=== PATIENT | female | born 1945 | race Caucasian/White ===

== ENCOUNTER 2021-03-28 13:33 | Inpatient (IN) | payer BC, SELFPAY ==
[~2021-03-28] VITALS: Ht 172.7 cm; Wt 66.2 kg
[2021-03-28 13:35] VITALS: BP_SYST 135
--- NOTE | 2021-03-28 13:40 | NUR ---
Patient to ER bed 7 to gown for evaluation. Side rails up. Report given to Laura ROYAL.
--- NOTE | 2021-03-28 13:42 | NUR ---
Pt brought by ACLS, A&Ox4, pt presents to ER with rapid heartbeat, pt has Hx of Afib, skin pink and warm, cap refill <3, VSS, respirations even and unlabored, will cont to monitor.
--- NOTE | 2021-03-28 14:22 | NUR ---
ER DR. CARDONA AT THE BEDSIDE
[2021-03-28] MEDS ORDERED: DILTIAZEM HCL 25 MG/5 ML VIAL IVP ONE ×2 (14:30→20:15)
[2021-03-28] MEDS ORDERED: MAG HYDROX/AL HYDROX/SIMETH 30 ML, DICYCLOMINE HCL 20 MG, LIDOCAINE VISCOUS 2% 15ML (PO... PO ONE ×3 (14:45)
--- NOTE | 2021-03-28 14:47 | NUR ---
PORTABLE X-RAY AT THE BEDSIDE
--- NOTE | 2021-03-28 14:54 | NUR ---
Patient transported to radiology via WC, accompanied by STAFF.
[2021-03-28] MEDS ORDERED: DILTIAZEM HCL 125 MG/25 ML VIAL IV ONE ×2 (14:58→22:47)
[2021-03-28 15:05] LABS: BASOPHILS % (AUTO) 0.1 % (0.0-2.0); HEMATOCRIT 43.4 % (36-48); HEMOGLOBIN 14.8 g/dL (12.0-16.0); LYMPHOCYTES # (AUTO) 0.6 K/uL (1.0-5.5); LYMPHOCYTES % (AUTO) 7.1 % (20.5-51.5); MEAN CORPUSCULAR HEMOGLOBIN 33 pg (27-31); MEAN CORPUSCULAR HGB CONC 34 % (32-36); MEAN CORPUSCULAR VOLUME 95 fL (79.0-98.0); MONOCYTES # (AUTO) 0.4 K/uL (0.0-1.0); NEUTROPHILS # (AUTO) 7.2 K/uL (1.8-7.7); NEUTROPHILS % (AUTO) 87.8 % (40.0-70.0); PLATELET COUNT (AUTO) 173 K/uL (130-430); RED BLOOD CELL COUNT(AUTO) 4.55 MIL/uL (4.2-6.2); RED CELL DISTRIBUTION WIDTH 15.2 % (9.0-15.0); WHITE BLOOD COUNT (AUTO) 8.2 K/uL (4.8-10.8)
[2021-03-28 15:25] LABS: INR 1.3 (0.8-1.2)
[2021-03-28 15:30] LABS: ALANINE AMINOTRANSFERASE 112 U/L (12-78); ALBUMIN 3.4 g/dL (3.4-4.8); ANION GAP 11 (5-15); ASPARTATE AMINOTRANSFERASE 95 U/L (10-37); CALCIUM 9.2 mg/dL (8.4-11.0); CHLORIDE 100 mmol/L (98-107); CREATININE 1.16 mg/dL (0.55-1.30); GLUCOSE 157 mg/dL (70-99); SODIUM SERUM 137 mmol/L (136-145); TOTAL BILIRUBIN 2.1 mg/dL (0.0-1.0); UREA NITROGEN, BLOOD 27 mg/dL (8-21)
[2021-03-28 15:36] LABS: POTASSIUM 2.5 mmol/L (3.5-5.1)
[2021-03-28 15:38] LABS: PROTHROMBIN TIME 13.1 SECS (9.5-12.5)
[2021-03-28] MEDS ORDERED: KCL 20 mEq in 100 mL (PREMIX) 100 ML IV ONE ×3 (16:00→22:00)
--- NOTE | 2021-03-28 16:01 | NUR ---
CARDIZEM DRIP TITRATED TO 15 MLS/HR PER PROTOCOL, BP 109/69, HR 125
--- NOTE | 2021-03-28 16:15 | NUR ---
Fe rosales in ED - 03/28/21 at 1656 by [email or web address] CARDIHARDIK DALEIP TITRATED TO 15 MLS/HR BP 115/54 P 135
[2021-03-28] MEDS ORDERED: IOHEXOL 350 mgI/mL, 150 ML INFUS..BTL IV ONE (16:21)
[2021-03-28] MEDS ORDERED: LOSA50TA3 PO (18:13)
[2021-03-28] MEDS ORDERED: LIP40 PO (18:13)
[2021-03-28] MEDS ORDERED: AMLO5TAB92 PO (18:13)
[2021-03-28] MEDS ORDERED: PARO-41 PO (18:13)
[2021-03-28] MEDS ORDERED: MECL-103 PO (18:13)
[2021-03-28] MEDS ORDERED: HYDR12.55 PO (18:13)
[2021-03-28] MEDS ORDERED: LORA-258 PO (18:13)
[2021-03-28] MEDS ORDERED: ASPI-1393 PO (18:13)
--- NOTE | 2021-03-28 18:13 | NUR ---
Medication reconciliation completed with information provided by MAKENZIE MAYO. Any prior medication reconciliation on file was reviewed and corrected.
[2021-03-28] MEDS ORDERED: *HEPARIN PER PHARMACY XX ONE (19:45)
--- NOTE | 2021-03-28 19:48 | NUR ---
Patient will be admitted to care of DR. GALLEGO A CASE OF NEW ONSET OF ATRIAL FIBRILLATION AND RVR. Admitted to ICU unit. Will go to room PENDING. Belongings list completed. Complete and up to date summary report printed. SBAR report to be given at bedside with opportunity for questions.
[2021-03-28] MEDS ORDERED: HEPARIN SODIUM,PORCINE 5,000 UNITS/ML VIAL IVP ONE (20:00)
[2021-03-28] MEDS ORDERED: HEPARIN SODIUM,PORCINE 3000 UNITS/0.6 ML BOLUS IVP PRN (20:00)
[2021-03-28] MEDS ORDERED: HEPARIN SODIUM,PORCINE 2000 UNITS/0.4 ML BOLUS IVP PRN (20:00)
[2021-03-28] MEDS ORDERED: HEPARIN 25,000 UNITS in 250 ML PREMIX IV PRN (20:00)
--- NOTE | 2021-03-28 20:01 | NUR ---
CALLED. INFORMED OF STATUS. WILL CALL TOMORROW MORNING FOR UPDATE
--- NOTE | 2021-03-28 20:20 | NUR ---
Pt SpO2 90% RA, placed on 2L/NC.
--- NOTE | 2021-03-28 21:35 | NUR ---
DAUGHTER, IGGY KAUFFMAN, UPDATED ON STATUS
[2021-03-28 22:54] LABS: BILIRUBIN,URINE 2+ (NEGATIVE); GLUCOSE,URINE NEGATIVE (NEGATIVE); KETONES,URINE TRACE (NEGATIVE); LEUKOCYTE ESTERASE ,URINE NEGATIVE (NEGATIVE); NITRITE, URINE NEGATIVE (NEGATIVE); PROTEIN URINE TRACE (NEGATIVE)
--- NOTE | 2021-03-28 23:00 | NUR ---
Pt moved to ER bed 2.
[2021-03-28 23:03] LABS: BLOOD, URINE TRACE (NEGATIVE); CLARITY/URINE HAZY (CLEAR); COLOR,URINE AMBER (YELLOW)
[2021-03-28] MEDS ORDERED: POTASSIUM CHLORIDE 20 MEQ in NS 250 ML IV PRN (23:15)
[2021-03-28 23:24] LABS: BACTERIA,URINE FEW /HPF (None Seen); RBC,URINE 0-3 /HPF (0-3)
[2021-03-28 23:25] LABS: MUCUS,URINE None Seen /LPF (None Seen)
[2021-03-29] VITALS (22 sets, daily range): BP systolic 82–151
--- NOTE | 2021-03-29 00:30 | NUR ---
Pt attempting to get out of bed multiple times. Pt pulled out PIV. Bleeding controlled and dressing applied. Pt re-oriented and placed back in bed.
[2021-03-29] MEDS: LORazepam 1 MG TABLET PO PRN ×2 (01:19→21:43)
[2021-03-29] MEDS ORDERED: KCL 20 mEq in 100 mL (PREMIX) 100 ML IV ONE (02:23)
--- NOTE | 2021-03-29 02:30 | NUR ---
Pt in bed, pulled out PIV again. Bleeding controlled and dressing applied.
--- NOTE | 2021-03-29 02:50 | NUR ---
Received call from Dr. Marquez- updated on patient. Orders received.
[2021-03-29] MEDS ORDERED: DIPHENHYDRAMINE INJ 50 MG/ML VIAL IV ONE (03:00)
--- NOTE | 2021-03-29 03:00 | NUR ---
Patient's code status is FULL CODE paperwork completed and placed in chart.
[2021-03-29] MEDS ORDERED: DIPHENHYDRAMINE INJ 50 MG/ML VIAL ONE (03:02)
--- NOTE | 2021-03-29 03:20 | NUR ---
Transfer to ICU 1 via ACLS protocol. Licensed nurse present. IV present no signs or symptoms of infiltration.
--- NOTE | 2021-03-29 03:35 | NUR ---
ICU ADMIT Patient is alert, awake and confused. O2 via NC @ 2L, RR even and unlabored. Skin warm/dry/intact. IV infusing, no signs of infiltration noted. Bilateral wrist restraints in place, no signs of skin issues noted. Safety precautions in place, call light within reach. Will continue to monitor.
--- NOTE | 2021-03-29 06:30 | NUR ---
Spoke to patients daughter. Update given.
--- NOTE | 2021-03-29 06:40 | NUR ---
CONSULT CARDIO. CONSULTING MD: DR. SAAVEDRA PERSON NOTIFIED: TANESHA DIALED: [phone] ORDERED BY: DR. GALLEGO
[2021-03-29 07:39] LABS: BASOPHILS % (AUTO) 0.1 % (0.0-2.0); HEMATOCRIT 43.7 % (36-48); HEMOGLOBIN 14.7 g/dL (12.0-16.0); LYMPHOCYTES # (AUTO) 1.3 K/uL (1.0-5.5); LYMPHOCYTES % (AUTO) 13.6 % (20.5-51.5); MEAN CORPUSCULAR HEMOGLOBIN 32 pg (27-31); MEAN CORPUSCULAR HGB CONC 34 % (32-36); MEAN CORPUSCULAR VOLUME 95 fL (79.0-98.0); MONOCYTES # (AUTO) 0.7 K/uL (0.0-1.0); NEUTROPHILS # (AUTO) 7.7 K/uL (1.8-7.7); NEUTROPHILS % (AUTO) 79.3 % (40.0-70.0); PLATELET COUNT (AUTO) 190 K/uL (130-430); RED BLOOD CELL COUNT(AUTO) 4.59 MIL/uL (4.2-6.2); RED CELL DISTRIBUTION WIDTH 14.9 % (9.0-15.0); WHITE BLOOD COUNT (AUTO) 9.7 K/uL (4.8-10.8)
[2021-03-29] MEDS: ASPIRIN 81 MG TABLET(ECOTRIN) PO SCH (08:51)
[2021-03-29] MEDS: PARoxetine HCL 20 MG TABLET PO SCH ×2 (08:51→21:42)
[2021-03-29] MEDS: ATORVASTATIN 20 MG TABLET PO SCH (08:51)
[2021-03-29] MEDS ORDERED: LOSARTAN POTASSIUM 50 MG TABLET (COZAAR) PO SCH (09:00)
[2021-03-29] MEDS ORDERED: AMIODARONE HCL 200 MG TABLET PO ONE (09:00)
[2021-03-29] MEDS: APIXABAN 2.5 MG TABLET PO SCH ×2 (09:17→21:43)
[2021-03-29 09:31] LABS: INR 1.6 (0.8-1.2); PROTHROMBIN TIME 16.1 SECS (9.5-12.5)
[2021-03-29 10:19] LABS: ANION GAP 18 (5-15); CALCIUM 9.2 mg/dL (8.4-11.0); CHLORIDE 99 mmol/L (98-107); CREATININE 1.42 mg/dL (0.55-1.30); GLUCOSE 184 mg/dL (70-99); POTASSIUM 3.3 mmol/L (3.5-5.1); SODIUM SERUM 134 mmol/L (136-145); UREA NITROGEN, BLOOD 30 mg/dL (8-21)
[2021-03-29 10:20] LABS: TOTAL BILIRUBIN 2.4 mg/dL (0.0-1.0)
[2021-03-29 10:21] LABS: ALANINE AMINOTRANSFERASE 171 U/L (12-78); ALBUMIN 3.3 g/dL (3.4-4.8); ASPARTATE AMINOTRANSFERASE 190 U/L (10-37); FREE T4 (FREE THYROXINE) 2.1 ng/dl (0.8-1.5); THYROID STIMULATING HORMONE 4.34 uIu/mL (0.36-3.74)
[2021-03-29 11:32] LABS: CHOLESTEROL 84 mg/dL (<200); HDL CHOLESTEROL 47 mg/dL (>55); LDL CHOLESTEROL 50 mg/dL (<100); TRIGLYCERIDES 78 mg/dL (30-150)
[2021-03-29] MEDS ORDERED: POTASSIUM CHLORIDE 20 MEQ TAB.PRT.SR PO ONE (12:45)
[2021-03-29] MEDS: AMIODARONE HCL 200 MG TABLET PO SCH ×2 (13:59→21:42)
[2021-03-29] MEDS: cefTRIAXone 1 GM in D5W 50 ML IV SCH (14:00)
--- NOTE | 2021-03-29 18:26 | NUR ---
PAGED FOR ORDERS DIALED: [phone] SPOKE TO: KAILEY
--- NOTE | 2021-03-29 19:16 | NUR ---
No urine output for the shift, unable to obtain urine specimen. Patient refuses to drink fluids. Dr. Marquez informed. Obtained order for NS 2 liters @ 100ml/hr.
--- NOTE | 2021-03-29 19:18 | NUR ---
Status remains stable. Continues on Cardizem @ 10mgs/hr. Remains in Afib @ a controlled rate. Dr. Marquez order to discontinue Cardizem if HR is between 90 and 70. Report given to Uyen, the [employer]person [employer] RN that will continue with the care of this patient. All stated protocols remain effective.
--- NOTE | 2021-03-29 19:30 | NUR ---
PM SHIFT ASSESSMENT Patient is alert, awake and confused. O2 via NC @ 2L, RR even and unlabored. Skin warm/dry/intact. IV infusing, no signs of infiltration noted. Bilateral wrist restraints in place, no signs of skin issues noted. Safety precautions in place, call light within reach. Will continue to monitor.
[2021-03-29] MEDS: NACL 0.9% 1,000 ML IV SCH (19:35)
[2021-03-29] MEDS ORDERED: DILTIAZEM HCL 125 MG/25 ML VIAL IV ONE (21:20)
[2021-03-30] VITALS (26 sets, daily range): BP systolic 61–145
[2021-03-30] MEDS ORDERED: KCL 20 mEq in 100 mL (PREMIX) 100 ML IV ONE (00:31)
--- NOTE | 2021-03-30 02:00 | NUR ---
PAGED DR. GALLEGO FOR ORDERS DIALED: [phone] SPOKE TO: KAILEY
--- NOTE | 2021-03-30 02:10 | NUR ---
Spoke to Dr. Alma MD informed that patient is feeling dizzy and nauseous. also informed of patients minimal output, orders for lamar catheter and zofran per MD order.
[2021-03-30] MEDS ORDERED: ONDANSETRON HCL 4 MG/2 ML VIAL IVP PRN (02:15)
[2021-03-30] MEDS: AMIODARONE HCL 200 MG TABLET PO SCH (05:26)
[2021-03-30] MEDS: NACL 0.9% 1,000 ML IV SCH ×2 (05:27→13:20)
[2021-03-30 06:39] LABS: BASOPHILS % (AUTO) 0.1 % (0.0-2.0); EOSINOPHILS % (AUTO) 0.1 % (0.0-4.0); HEMATOCRIT 45.9 % (36-48); HEMOGLOBIN 15.2 g/dL (12.0-16.0); LYMPHOCYTES # (AUTO) 0.7 K/uL (1.0-5.5); LYMPHOCYTES % (AUTO) 6.4 % (20.5-51.5); MEAN CORPUSCULAR HEMOGLOBIN 32 pg (27-31); MEAN CORPUSCULAR HGB CONC 33 % (32-36); MEAN CORPUSCULAR VOLUME 98 fL (79.0-98.0); MONOCYTES # (AUTO) 0.7 K/uL (0.0-1.0); NEUTROPHILS # (AUTO) 9.1 K/uL (1.8-7.7); NEUTROPHILS % (AUTO) 86.4 % (40.0-70.0); PLATELET COUNT (AUTO) 194 K/uL (130-430); RED CELL DISTRIBUTION WIDTH 15.4 % (9.0-15.0); WHITE BLOOD COUNT (AUTO) 10.5 K/uL (4.8-10.8)
[2021-03-30 07:12] LABS: ALBUMIN 3.1 g/dL (3.4-4.8); ANION GAP 22 (5-15); CHLORIDE 100 mmol/L (98-107); FREE T4 (FREE THYROXINE) 2.1 ng/dl (0.8-1.5); GLUCOSE 255 mg/dL (70-99); POTASSIUM 3.7 mmol/L (3.5-5.1); SODIUM SERUM 135 mmol/L (136-145); THYROID STIMULATING HORMONE 5.69 uIu/mL (0.36-3.74); UREA NITROGEN, BLOOD 40 mg/dL (8-21)
--- NOTE | 2021-03-30 07:30 | NUR ---
ENDORSEMENT Patient care endorsed to wojciech ROYAL.
[2021-03-30] MEDS ORDERED: CARVEDILOL 6.25 MG TABLET (COREG) PO ONE (09:00)
[2021-03-30] MEDS: PARoxetine HCL 20 MG TABLET PO SCH ×2 (09:50→22:38)
[2021-03-30] MEDS: ATORVASTATIN 20 MG TABLET PO SCH (09:50)
[2021-03-30] MEDS: ASPIRIN 81 MG TABLET(ECOTRIN) PO SCH (09:50)
[2021-03-30 10:30] LABS: ALANINE AMINOTRANSFERASE 537 U/L (12-78); ASPARTATE AMINOTRANSFERASE 614 U/L (10-37)
--- NOTE | 2021-03-30 11:22 | NUR ---
LOW URINE OUTPUT NO URINE OUTPUT THIS MORNING, BLADDER SCAN = 25mL. BUN/CREAT INCREASED. DR. JULIÁN VALDOVINOS
[2021-03-30] MEDS ORDERED: NOREPINEPHRINE 4 MG/4 ML VIAL IV ONE ×3 (11:53→21:50)
[2021-03-30] MEDS ORDERED: DOPamine PREMIX 250 ML IV ONE (11:55)
--- NOTE | 2021-03-30 11:57 | NUR ---
CONSULT NEPHRO. CONSULTING MD: DR. PONCE PERSON NOTIFIED: BRIANNA DIALED: [phone] ORDERED MD: DR. GALLEGO
[2021-03-30] MEDS ORDERED: FUROSEMIDE 20 MG/2 ML VIAL IVP ONE (12:00)
--- NOTE | 2021-03-30 12:00 | NUR ---
low HR (58) Dopamine initiated card drip DC per order parameters. Dr. Marquez updated, new orders received
--- NOTE | 2021-03-30 12:29 | NUR ---
CONSULT PULMO. CONSULTING MD: DR. ALVARENGA PERSON NOTIFIED: EMMANUEL DIALED: [phone] ORDERED BY:DR. GALLEGO
[2021-03-30 12:53] LABS: ANION GAP 24 (5-15); CALCIUM 8.6 mg/dL (8.4-11.0); CHLORIDE 102 mmol/L (98-107); CREATININE 2.94 mg/dL (0.55-1.30); GLUCOSE 141 mg/dL (70-99); POTASSIUM 4.8 mmol/L (3.5-5.1); SODIUM SERUM 138 mmol/L (136-145); UREA NITROGEN, BLOOD 41 mg/dL (8-21)
--- NOTE | 2021-03-30 13:45 | NUR ---
PT INTUBATED AT BEDSIDE @ 1345 PT LESS RESPONSIVE, HR DOWN TO 50. RADIAL PULSES STRONG BILAT, PEDAL PULSES THREADY BILAT. CODE BLUE TRIGERED PER DR. GALLEGO AT BEDSIDE FOR RAPID INTUBATION. PT INTUBATED AT BEDSIDE AT [address] RIVERA
[2021-03-30] MEDS ORDERED: SODIUM BICARBONATE 8.4% JECT 50 MEQ/50 ML SYRINGE ONE (14:40)
[2021-03-30] MEDS ORDERED: SODIUM BICARBONATE 8.4% JECT 50 MEQ/50 ML SYRINGE IV ONE (14:45)
[2021-03-30] MEDS: cefTRIAXone 1 GM in D5W 50 ML IV SCH (15:06)
[2021-03-30] MEDS: DOPamine PREMIX 250 ML IV PRN ×3 (15:42→17:39)
[2021-03-30] MEDS ORDERED: SODIUM BICARBONATE 8.4% JECT 50 MEQ/50 ML SYRINGE IVP ONE ×2 (16:13→18:00)
[2021-03-30] MEDS ORDERED: SODIUM BICARBONATE 8.4% JECT 100 MEQ in D5W 1,000 ML IV SCH (16:15)
--- NOTE | 2021-03-30 16:22 | NUR ---
CONSULT [facility]. CONSULTING MD: DR. CERVANTES DIALED: [phone] PERSON NOTIFIED: DR. CERVANTES ORDERED BY: DR. GALLEGO
[2021-03-30] MEDS ORDERED: COMMUNICATION ORDER XX ONE (16:30)
--- NOTE | 2021-03-30 17:45 | NUR ---
CONSULT ID CONSULTING MD: DR. FERGUSON PERSON NOTIFIED: HERRERA DIALED: [phone] ORDERED BY: DR. GALLEGO
[2021-03-30] MEDS: NOREPINEPHRINE BITARTRATE 16 MG in NS 234 ML IV PRN ×2 (17:51→21:58)
[2021-03-30] MEDS ORDERED: AZITHROMYCIN 500 MG in NS 250 ML IV SCH (18:00)
[2021-03-30] MEDS: SODIUM BICARBONATE 8.4% VIAL 100 MEQ in D5W 1,000 ML IV SCH (18:39)
[2021-03-30] MEDS ORDERED: VECURONIUM BROMIDE 10 MG/VIAL (NORCURON) ONE (19:03)
[2021-03-30] MEDS: PIPERACILLIN/TAZO 2.25G/DEX-IS 50 ML IV SCH (19:11)
[2021-03-30] MEDS ORDERED: SUCCINYLCHOLINE CHLORIDE 20 MG/ML(QUELICIN) IVP ONE (19:24)
[2021-03-30] MEDS ORDERED: ETOMIDATE 20 MG/ 10 ML VIAL (AMIDATE) IVP ONE (19:24)
--- NOTE | 2021-03-30 19:30 | NUR ---
Opening note Received report and assumed care. Dr Obrien at bedside placing HD catheter right femoral and central line right internal jugular. Tolerated procedure well. Dressing place to both sites using sterile technique. Vent to ETT in place with settings AC 26 TV 450 fio2 100% peep 5+. repositioned for comfort. will continue to monitor.
[2021-03-30] MEDS ORDERED: MORPHINE 2 MG/ML INJ. SYRINGE IVP PRN (20:00)
[2021-03-30] MEDS ORDERED: MIDAZOLAM HCL 2 MG/2 ML VIAL (VERSED) IVP PRN (20:00)
[2021-03-30] MEDS ORDERED: NALOXONE HCL 0.4 MG/ML AMP (NARCAN) IVP PRN (20:00)
[2021-03-30] MEDS ORDERED: CARVEDILOL 6.25 MG TABLET (COREG) PO SCH (21:00)
--- NOTE | 2021-03-30 21:30 | NUR ---
Spoke with evelyn, patient's son and patient's . Information provided and questions answered satisfactorily.
[2021-03-30] MEDS: IPRATROPIUM/ALBUTEROL SULFATE 3 ML AMPUL.NEB (DUONEB) INH SCH (23:00)
[2021-03-30] MEDS: ALBUTEROL SULFATE 0.083% 2.5 MG/3 ML VIAL.NEB INH SCH (23:17)
[2021-03-31] VITALS (13 sets, daily range): BP systolic 90–134
[2021-03-31] MEDS: PIPERACILLIN/TAZO 2.25G/DEX-IS 50 ML IV SCH ×3 (00:20→12:39)
--- NOTE | 2021-03-31 00:30 | NUR ---
Assessment completed. Repositioned for comfort.
[2021-03-31] MEDS ORDERED: NOREPINEPHRINE 4 MG/4 ML VIAL IV ONE ×2 (02:01→05:53)
[2021-03-31] MEDS: IPRATROPIUM/ALBUTEROL SULFATE 3 ML AMPUL.NEB (DUONEB) INH SCH (03:00)
--- NOTE | 2021-03-31 03:04 | NUR ---
At this time Levophed is to maximum dose 1 mcg/kg/min, Dopamine at 10 mcg/kg/min with BP down to 83/34. Dopamine was increased to 15 mcg/kg/min obtaining BP 97/59. will continue to monitor.
[2021-03-31] MEDS: ALBUTEROL SULFATE 0.083% 2.5 MG/3 ML VIAL.NEB INH SCH ×3 (03:23→11:49)
[2021-03-31] MEDS: SODIUM BICARBONATE 8.4% VIAL 100 MEQ in D5W 1,000 ML IV SCH (03:43)
[2021-03-31 06:24] LABS: BASOPHILS % (AUTO) 0.3 % (0.0-2.0); EOSINOPHILS # (AUTO) 0.2 K/uL (0.0-0.4); EOSINOPHILS % (AUTO) 1.6 % (0.0-4.0); HEMATOCRIT 42.2 % (36-48); HEMOGLOBIN 13.1 g/dL (12.0-16.0); LYMPHOCYTES # (AUTO) 0.7 K/uL (1.0-5.5); LYMPHOCYTES % (AUTO) 7.1 % (20.5-51.5); MEAN CORPUSCULAR HEMOGLOBIN 32 pg (27-31); MEAN CORPUSCULAR HGB CONC 31 % (32-36); MEAN CORPUSCULAR VOLUME 103 fL (79.0-98.0); MONOCYTES # (AUTO) 0.2 K/uL (0.0-1.0); NEUTROPHILS # (AUTO) 9.3 K/uL (1.8-7.7); PLATELET COUNT (AUTO) 138 K/uL (130-430); RED BLOOD CELL COUNT(AUTO) 4.08 MIL/uL (4.2-6.2); RED CELL DISTRIBUTION WIDTH 16.8 % (9.0-15.0); WHITE BLOOD COUNT (AUTO) 10.4 K/uL (4.8-10.8)
[2021-03-31 07:04] LABS: ANION GAP 29 (5-15); CALCIUM 7.2 mg/dL (8.4-11.0); CHLORIDE 100 mmol/L (98-107); GLUCOSE 228 mg/dL (70-99); POTASSIUM 4.5 mmol/L (3.5-5.1); SODIUM SERUM 140 mmol/L (136-145); TOTAL BILIRUBIN 2.4 mg/dL (0.0-1.0); UREA NITROGEN, BLOOD 49 mg/dL (8-21)
--- NOTE | 2021-03-31 07:16 | NUR ---
OPENING NOTE: REPORT RC'VD FROM NOC RN, ALL CARES ASSUMED.
--- NOTE | 2021-03-31 07:50 | NUR ---
FAMILY UPDATE: SPOKE WITH SON, UPDATES GIVEN AND ALL QUESTIONS ANSWERED AT THIS TIME.
[2021-03-31 07:53] LABS: ALANINE AMINOTRANSFERASE 6343 U/L (12-78)
[2021-03-31 08:30] LABS: ASPARTATE AMINOTRANSFERASE 11721 U/L (10-37)
[2021-03-31] MEDS: ASPIRIN 81 MG TABLET(ECOTRIN) PO SCH ×2 (09:00→09:34)
--- NOTE | 2021-03-31 09:00 | NUR ---
DR. ALVARENGA AT BEDSIDE, NEW ORDERS OBTAINED, TO CALL FAMILY.
--- NOTE | 2021-03-31 09:09 | NUR ---
DR. SAAVEDRA AT BEDSIDE, NO NEW ORDERS AT THIS TIME.
[2021-03-31] MEDS ORDERED: SODIUM BICARBONATE 8.4% JECT 50 MEQ/50 ML SYRINGE IVP ONE (09:15)
[2021-03-31] MEDS ORDERED: VASOPRESSIN 100 UNITS in D5W 45 ML IV PRN (09:15)
[2021-03-31] MEDS ORDERED: LR 1,000 ML IV ONE (09:15)
[2021-03-31] MEDS: ATORVASTATIN 20 MG TABLET PO SCH (09:34)
[2021-03-31] MEDS: PARoxetine HCL 20 MG TABLET PO SCH (09:34)
[2021-03-31] MEDS: DOPamine PREMIX 250 ML IV PRN (09:46)
[2021-03-31] MEDS: NOREPINEPHRINE BITARTRATE 16 MG in NS 234 ML IV PRN (09:50)
--- NOTE | 2021-03-31 11:30 | NUR ---
NG TUBE INSERTION: ATTEMPTED NG TUBE INSERTION INTO LEFT AND RIGHT AND WITH NO SUCCESS, UNABLE TO ADVANCE TUBING. MD MADE AWARE AND FAMILY REMAINS AT BEDSIDE. Addendum: 03/31/21 at 1228 by Iliana Kang RN WRONG CHART
--- NOTE | 2021-03-31 12:00 | NUR ---
Family Refusal Family refused lab draw due to end of life care.
--- NOTE | 2021-03-31 12:15 | NUR ---
RN NOTES DR. GALLEGO NOTIFIED OF PT EXPIRATION. CONSULTS: DR. FERGUSON, DR. Elizabeth CERVANTES, DR. PONCE, DR. SAAVEDRA, DR. ALVARENGA NOTIFICATION DONE.
--- NOTE | 2021-03-31 12:22 | NUR ---
EEG Refusal refused EEG due to end of life care.
--- NOTE | 2021-03-31 12:43 | NUR ---
verbalized NO CPR Pt went into asystole while was in the room. verbalized that he did not want us to start CPR.
--- NOTE | 2021-03-31 12:43 | NUR ---
ASYSTOLE NOTED ON MONITOR, AT BEDSIDE VERBALIZED DNR, SECOND RN WITNESSED.
[2021-03-31] MEDS ORDERED: APIXABAN 2.5 MG TABLET PO ONE (12:45)
--- NOTE | 2021-03-31 12:55 | NUR ---
1258 pt . waited on orders and removed et tube. Addendum: 03/31/21 at 1337 by Kim Hauser RT Amended: Links added.
--- NOTE | 2021-03-31 12:58 | NUR ---
TIME OF [address] Chantell RIVERA CALLED TIME OF AT 1258
--- NOTE | 2021-03-31 13:00 | NUR ---
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
--- NOTE | 2021-03-31 13:10 | NUR ---
[facility] [id number], PATIENT NOT AN ACCEPTABLE DONOR R/T DX.
--- NOTE | 2021-03-31 13:30 | NUR ---
DAUGHTER AND SON AT BEDSIDE, ASSISTED IN BATHING PATIENT FOR POST MORTEM CARE.
--- NOTE | 2021-03-31 15:00 | NUR ---
PATIENT RELEASED TO SECURITY TO BE TAKEN TO [place].
[2021-03-31] MEDS ORDERED: APIXABAN 2.5 MG TABLET PO SCH (21:00)
== END 2021-03-31 12:58 | DRG 208 ==
LOC: SED 13:33 → SIC 20:21
PROVIDERS: ADMIT Internal Medicine; ATTEND Internal Medicine
PROC: 06HY33Z Insertion of Infusion Device into Lower Vein, Percutaneous Approach (ICD-10-PCS; principal; 2021-03-30)
PROC: B54BZZA Ultrasonography of Right Lower Extremity Veins, Guidance (ICD-10-PCS; 2021-03-30)
PROC: 0BH17EZ Insertion of Endotracheal Airway into Trachea, Via Natural or Artificial Opening (ICD-10-PCS; 2021-03-30)
PROC: 5A1935Z Respiratory Ventilation, Less than 24 Consecutive Hours (ICD-10-PCS; 2021-03-30)
PROC: 02HV33Z Insertion of Infusion Device into Superior Vena Cava, Percutaneous Approach (ICD-10-PCS; 2021-03-31)
PROC: B548ZZA Ultrasonography of Superior Vena Cava, Guidance (ICD-10-PCS; 2021-03-31)
DX: J69.0 Pneumonitis due to inhalation of food and vomit (principal); A41.9 Sepsis, unspecified organism; I21.A1 Myocardial infarction type 2; N17.0 Acute kidney failure with tubular necrosis; J96.01 Acute respiratory failure with hypoxia; R65.21 Severe sepsis with septic shock; G93.41 Metabolic encephalopathy; K72.00 Acute and subacute hepatic failure without coma; I48.20 Chronic atrial fibrillation, unspecified; E87.2 Acidosis; E78.00 Pure hypercholesterolemia, unspecified; I46.9 Cardiac arrest, cause unspecified; I11.0 Hypertensive heart disease with heart failure; I50.9 Heart failure, unspecified; E78.5 Hyperlipidemia, unspecified; E87.6 Hypokalemia; Z20.822 Contact with and (suspected) exposure to COVID-19; Z96.641 Presence of right artificial hip joint; G30.9 Alzheimer's disease, unspecified; F02.80 Dementia in other diseases classified elsewhere, unspecified severity, without behavioral disturbance, psychotic disturbance, mood disturbance, and anxiety; R57.0 Cardiogenic shock; Z88.2 Allergy status to sulfonamides; Z91.012 Allergy to eggs; Z79.82 Long term (current) use of aspirin; Z79.899 Other long term (current) drug therapy; Z90.710 Acquired absence of both cervix and uterus
CPT/HCPCS: 36415; 36600; 70450-TC; 71045; 71275; 74018; 76376; 76700-TC; 80048; 80053; 80061; 81000; 82803-TC; 82962; 83735; 83880; 84439; 84443; 84484; 85025; 85379; 85610-TC; 85730-TC; 87070-TC; 87081; 87086; 87205-TC; 93005; 93306; 94002; 94003; 94640; 96365; 96366; 96367; 96375; 99291; J0330; J0456; J0696; J1200; J1265; J1644; J1940; J2001; J2405; J2543; J3465; J3480; J3490; J7050; J7060; J7613; Q9967